=== PATIENT | female | born 1990 | race African-American/Black ===

== ENCOUNTER 2022-12-27 18:56 | Emergency (ER) | payer OTHER, SELFPAY ==
[2022-12-27 19:07] VITALS: BP 150/91; PULSE 86; RESP 16; TEMP 37.1; O2SAT 100
--- NOTE | 2022-12-27 19:09 | ED.SKABFB ---
HPI - Skin/Abscess/Foreign Bdy General Chief complaint: Skin/Abscess/Foreign Body Stated complaint: Insect Bite Time Seen by Provider: 12/27/22 19:09 Source: patient Mode of arrival: ambulatory Limitations: no limitations History of Present Illness HPI narrative: 32-year-old female presents with insect bite to right lower extremity for 2 days. Is concerned that she has a spider bite. afebrile. complaint of pain. No itching. Has not taken any [id number] pain medications. States pain became worse while at work today. Denies body aches and chills. No drainage. Reports tetanus is up-to-date. All systems reviewed and negative except as noted above. Related Data Allergies Allergy/AdvReac Type Severity Reaction Status Date / Time No Known Allergies Allergy Verified 12/27/22 19:06 Review of Systems Review of Systems: CONSTITUTIONAL: Denies fever, chills, or sweats. EYES: Denies visual changes, redness, or discharge. ENT: Denies rhinorrhea, congestion, sore throat, or otalgia. CARDIOVASCULAR: Denies chest pain, palpitations, or edema. RESPIRATORY: Denies cough or dyspnea. GASTROINTESTINAL: Denies abdominal pain, nausea, vomiting, or diarrhea. GENITOURINARY: Denies dysuria or hematuria. SKIN: Denies rash or itching. Reports redness, pain and swelling to right lower extremity. MUSCULOSKELETAL: Denies back pain, joint pain, or myalgia. NEUROLOGIC: Denies headache, numbness, or weakness. PSYCHIATRIC: Denies anxiety or depression. All other systems reviewed are negative, except as documented in HPI. PMFSH Comments At time of signature, agree with nursing past medical, surgical, social and family history. There is no relevant family history pertinent to the presenting complaint. Exam Narrative: GENERAL: This is a well-nourished, well-developed patient, in no apparent distress. HEAD: normocephalic, atraumatic. EYES: PERRL. Sclera clear/white. Vision is grossly intact. EARS: External ears normal NOSE: External nose normal NECK: Neck supple, non-tender without lymphadenopathy, masses or thyromegaly. CARDIOVASCULAR: Regular rate and rhythm without murmurs, gallops, or rubs. RESPIRATORY: Clear to auscultation. Breath sounds equal bilaterally. No wheezes, rales, or rhonchi. SKIN: warm, Dry, intact with no suspicious lesions or rash, good texture and turgor. NEURO: awake, alert, and oriented to person, place and time. There were no obvious focal neurologic abnormalities. EXTREMITIES: No joint tenderness, effusion. there is erythema, swelling to right lower extremity, lateral aspect, approximately 10 cm x 11 cm. No fluctuance. There is a small less than 1 cm blister to the center. Tender on palpation with warmth. Course Course Level of Care: Express Care Visit Vital Signs Vital signs: Vital Signs Temperature 37.1 C 12/27/22 19:07 Pulse Rate 86 12/27/22 19:07 Respiratory Rate 16 12/27/22 19:07 Blood Pressure 150/91 H 12/27/22 19:07 Pulse Oximetry 100 12/27/22 19:07 Temperature 37.1 C 12/27/22 19:07 Pulse Rate 86 12/27/22 19:07 Respiratory Rate 16 12/27/22 19:07 Blood Pressure 150/91 H 12/27/22 19:07 Pulse Oximetry 100 12/27/22 19:07 Reviewed MDM - Skin/Abscess/Foreign Bdy MDM Narrative Medical decision making narrative: Patient is aware of diagnosis, understands and agrees to treatment plan. Anticipatory guidance given. Patient agrees to follow-up as directed and is aware of reasons to seek care at the emergency department. Portions of this record may have been created with voice recognition software will prescribe doxycycline, Medrol Dosepak for infected insect bite. There is no fluctuance. I and D not indicated. Patient is afebrile. Discharge Plan Discharge Clinical Impression: Insect bite of right lower leg with infection Patient Disposition: Home, Self-Care Condition: Stable Instructions: Antibiotic Form, Insect Bite or Sting (ED) Addit
== END 2022-12-27 19:21 | disposition home or self-care (01) ==
PROVIDERS: Emergency Provider Nurse Practitioner Family
DX: S80.861A Insect bite (nonvenomous), right lower leg, initial encounter (principal); L08.9 Local infection of the skin and subcutaneous tissue, unspecified; W57.XXXA Bitten or stung by nonvenomous insect and other nonvenomous arthropods, initial encounter
CPT/HCPCS: 99203; G0463